=== PATIENT | female | born 1975 | race Caucasian/White ===

== ENCOUNTER → 2016-06-22 | Outpatient (CLI) | payer BC ==
--- NOTE | 2016-06-22 11:00 | ST Modified Barium Swallow ---
Recommendation - Recommendations Recommendations: 1) Recommend continued current diet of regular solids and thin liquids. 2) Recommend consider GI referral for pt reports of "sticking in chest " when eating. 3) Recommend consider pulmonology referral due to pt reports of "difficulty breathing" with walking and going up steps and sensation of "throat closing". 4) Follow-up with referring physician or primary care provider. SUMMARY: No penetration or aspiration observed during the study. Trace residuals of solids observed on base of tongue which cleared with second swallow. Residuals observed to be WFL and cleared with pt initiation of second swallow. Medical Diagnoses - Medical Diagnoses Medical Diagnosis Description & ICD-10 Code(s): dysphagia r13.10 Other Medical Diagnoses/Co-Morbidities: "borderline diabetes" - ICD-10 Tx Diagnosis Coding (1) Dysphagia, unspecified ICD-10 Code(s): R13.10 - DYSPHAGIA, UNSPECIFIED ST Modified Barium Swallow - General Date: 06/22/16 Referring Physician: Dr Shah Risks/Precautions: None Date of Onset: 06/23/15 Reason for Referral: dysphagia - History History obtained from: Patient -: Medical - Pt initially reports no deficits with swallowing and stated thought she was at a study for "breathing". Pt reported feels her "throat is closing", is in "constant throat pain", and has had "vocal changes." ST educated pt on MD's reason for referral and purpose of study. Pt then indicated coughing and choking on both solids and liquids. Pt denies history of PNA or bronchitis. Pt endorses globus sensation in mid-upper chest. Pt referred from ENT, documentation from visit states findings were normal. Pt states symptoms became worse after being "sick for a week" with a "sinus infection and ear infection". Pt reports was placed on antibiotic and was unable to eat due to "food tasted bad." PMHx: pt reports borderline diabetes. Pt states father had a history of "throat closing". Stated "my father's throat was closed for 3-4 months and no one knew why", "then it just went away". Medications: per pt, pt unable to reccall medication names; thyroid pills, sinus pill, nasal spray, vitamin, inflammatory medicine for feet. Allergies: dust - Functional Status Prior Functional Status: INDEPENDENT: ADL, communication, feeding Current Functional Limitations: ADL, communication, feeding - Subjective Patient/caregiver goal(s): safe swallow Cognitive-Linguistic Function: Functional Speech Intelligibility: WNL Current Nutritional Means: PO Current PO diet: Regular Current symptoms: c/o Globus sensation, other - sensation of "throat closing." Pain: 4/5 - throat pain - Objective Assessment: Upright, Left Lateral - Food Trials Used Food trials used: Thin liquids, Pureed, Regular The patient: Was Able to Self Feed, via cup, via spoon, via straw - Oral-Motor Skills Dentition: Full Velo-pharyngeal function: Active gag Laryngeal Function: Volitional Cough, Volitional Swallow - Assessment Oral prep: Normal Labial closure: Adequate Leakage: None Mastication: Adequate Lingual Movement: Normal Oral stage: Normal for this Procedure Oral Stage: Informal oral [facility] exam completed due to pt's reports of pain. No oral abnormalities or discoloration observed. Tonsils present- difficult to fully assess due to pt unable to relax tongue down, tongue depressor used-pt demonstrated overactive gag reflex. Upper portion of tonsils visible and did not appear inflamed or discolored-however limited view. - Pharyngeal Stage Initiation of Pharyngeal Stage Reflex: Normal Decreased laryngeal elevation: No Reduced Velopharyngeal Closure: no Reduced pressure generation: Yes - mild reduced tongue-based retraction: No Pre-swallow pooling in valleculae: None Pre-Swallow pooling in pyriforms: None Reduced Thyro-Hyoid approximation: No Reduced epiglottic excursion: No Reduced pharyngeal peristalsis/contraction: No Post-swallow residulas vallecular: None Post-Swallow residuals in pyriforms: None - Fall Risk Assessment Medications/Conditions that increase fall risks include: Antidepressants, sedatives, anti-arrhythmic, diuretic, benzodiazipenes, neuroleptics. BP regulation problems, cardiac problems, balance or gait deficits, neurological problems. Is patient considered at risk for falls: no Fall Risk Actions Taken: No action needed - Behavioral Observations During evaluation process patient: was pleasant, was cooperative, able to answer questions, provided medical history - Treatment / Educational Needs: Treatment/Education Needs: Treatment consisted of patient education on the role of the Speech Pathologist. Patient's plan of care and golas were communicated as well as scheduling and attendance policies. Recommendations for initial home program were shared. Patient demonstrated understanding and verbalized agreement. - Impression/Summary Laryngeal Penetration: No Tracheal Aspiration: no Patient presents with: Normal swallow at eval - safe and effective swallow observed during study Risk of Aspiration: Minimal Risk of nutritional compromise: None - no weightloss reported - Recommendations NPO: no Solid diet recommendations: Regular Liquid Diet Modification: Thin Strict aspiration precautions: No Pt/Family education and followup with MD: Yes Dysphagia therapy with [facility] FEEDER: no Recommended techniques: Fully Upright During Meal Supervision: Independent Information, Precautions and Recommendations: Patient (Verbal) - Time Total Time: 25 - Plan of Care Strategies to optimize patient understanding include:: ongoing assessment of educational needs, implementation of educational strategies, and re-education. - - -: Thank you for the opportunity to work with this patient and his/her family. Should you have any questions about this patient's plan or progress, I can be reached at [phone]. Charge G Code? - - -: No
== END ==
LOC: RAD 07:38
PROVIDERS: ATTEND Otolaryngology
DX: R13.10 Dysphagia, unspecified (principal)
CPT/HCPCS: 74230

== ENCOUNTER 2016-08-25 12:09 | Day surgery (SDC) | payer BC ==
[2016-08-18 10:34] LABS: ABSOLUTE EOSINOPHILS # (AUTO) 0.1 10^3/uL (0.0-0.6); ABSOLUTE LYMPHOCYTES (AUTO) 2.4 10^3/uL (0.5-4.7); ABSOLUTE MONOCYTES (AUTO) 0.3 10^3/uL (0.1-1.4); ABSOLUTE NEUT (AUTO) 4.4 10^3/uL (1.7-8.2); BASOPHILS % (AUTO) 0.5 % (0-2); EOSINOPHILS % (AUTO) 1.2 % (0-6); HEMATOCRIT 36.9 % (36.0-47.0); HEMOGLOBIN 12.2 g/dL (12.0-15.5); HGB HCT DIFFERENCE -0.3; LYMPHOCYTES % (AUTO) 32.9 % (13-45); MEAN CORPUSCULAR VOLUME 85 fl (80-97); MONOCYTES % (AUTO) 4.7 % (3-13); RED BLOOD COUNT 4.36 10^6/uL (3.72-5.28); RED CELL DISTRIBUTION WIDTH 14.4 % (11.5-14.0); SEGMENTED NEUTROPHILS % (AUTO) 60.7 % (42-78); WHITE BLOOD COUNT 7.2 10^3/uL (4.0-10.5)
[2016-08-18 10:51] LABS: AMORPHOUS SEDIMENT,URINE TRACE /HPF; APPEARANCE,URINE SLIGHTLY-CLOUDY; BILIRUBIN,URINE NEGATIVE (NEGATIVE); GLUCOSE, URINE NEGATIVE (NEGATIVE); KETONES,URINE NEGATIVE (NEGATIVE); LEUKOCYTE ESTERASE,URINE NEGATIVE (NEGATIVE); NITRITE,URINE NEGATIVE (NEGATIVE); PROTEIN,URINE NEGATIVE (NEGATIVE); URINE SPECIFIC GRAVITY 1.026; UROBILINOGEN,URINE NEGATIVE mg/dL (<2.0)
[2016-08-18 10:58] LABS: ANION GAP 12 (5-19); BLOOD UREA NITROGEN 15 mg/dL (7-20); CALCIUM 9.2 mg/dL (8.4-10.2); CARBON DIOXIDE 25 mmol/L (22-30); CHLORIDE 105 mmol/L (98-107); CREATININE RESULT 0.51 mg/dL (0.52-1.25); GLUCOSE 116 mg/dL (75-110); POTASSIUM 4.3 mmol/L (3.6-5.0); SODIUM 141.6 mmol/L (137-145)
--- NOTE | 2016-08-18 13:16 | RADIOLOGY REPORT (SQ) ---
EXAM DESCRIPTION: CHEST PA/LATERAL COMPLETED DATE/TIME: 08/18/2016 11:18 am REASON FOR STUDY: PRE-OP COMPARISON: None. EXAM PARAMETERS: NUMBER OF VIEWS: two views TECHNIQUE: Digital Frontal and Lateral radiographic views of the chest acquired. RADIATION DOSE: NA LIMITATIONS: none FINDINGS: LUNGS AND PLEURA: No opacities, masses or pneumothorax. No pleural effusion. MEDIASTINUM AND HILAR STRUCTURES: No masses or contour abnormalities. HEART AND VASCULAR STRUCTURES: Heart normal size. No evidence for failure. BONES: No acute findings. HARDWARE: None in the chest. OTHER: No other significant finding. IMPRESSION: NO SIGNIFICANT RADIOGRAPHIC FINDING IN THE CHEST. TECHNICAL DOCUMENTATION: JOB ID: [id number] [employer]- All Rights Reserved
--- NOTE | 2016-08-18 20:28 | EKG REPORT ---
SEVERITY:- BORDERLINE ECG - SINUS ARRHYTHMIA, RATE 49-70 BORDERLINE T ABNORMALITIES, INFERIOR LEADS : Confirmed by: Earl Vaughan MD 18-Aug-2016 20:28:05
[~2016-08-25 12:09] MED LIST: ACETAMINOPHEN 100 ML IV ONE; BUPIVACAINE HCL 0.5 % INJ/PF 30 ML SDV ONE; CEFAZOLIN 2 GM/D5W RTU 2 GM/50 ML RTUPB IV PRN; FENTANYL CITRATE INJ/PF 100 MCG/2 ML AMPUL ONE; LACTATED RINGERS 1000 ML IV PRN; LIDOCAINE 0.5% INJ-PF (5 MG/ML) 50 ML SDV SUBCUT PRN; LIDOCAINE 1% INJ-PF (10 MG/ML) 30 ML SDV ONE; MIDAZOLAM 2 MG/2 ML INJ ONE; PROPOFOL INJ 200 MG/20 ML VIAL IV ONE
[2016-08-25] MEDS ORDERED: DEXMEDETOMIDINE INJ 80 MCG/20 ML VIAL IV ONE (12:46)
[2016-08-25] MEDS ORDERED: MORPHINE SULFATE 10 MG/ML INJ IV PRN ×2 (13:42→14:27)
[2016-08-25] MEDS ORDERED: MEPERIDINE HCL/PF INJ 25 MG/1 ML DISP.SYRIN IV PRN (13:42)
[2016-08-25] MEDS ORDERED: OXYCODONE-ACETAMINOPHEN 5-325 MG TABLET PO PRN ×3 (13:42→14:27)
[2016-08-25] MEDS ORDERED: PROMETHAZINE HCL INJ 25 MG/1 ML VIAL IV PRN ×2 (13:42)
[2016-08-25] MEDS ORDERED: FENTANYL CITRATE INJ/PF 100 MCG/2 ML AMPUL IV PRN ×3 (13:42)
[2016-08-25] MEDS ORDERED: ONDANSETRON HCL INJ/PF 4 MG/2 ML SDV IV PRN ×2 (13:42→14:27)
[2016-08-25] MEDS ORDERED: DIPHENHYDRAMINE HCL 50 MG/ML VIAL IV PRN (13:42)
--- NOTE | 2016-08-25 14:26 | Operative Report ---
Operative Report DATE OF SURGERY: 08/25/16 PREOPERATIVE DIAGNOSIS: Right Carpal/Cubital Tunnel Syndrome POSTOPERATIVE DIAGNOSIS: Same OPERATION: Open In Situ Cubital Tunnel Release. Endoscopic Carpal Tunnel Release SURGEON: SARA ANTUNEZ ANESTHESIA: GA COMPLICATIONS: None ESTIMATED BLOOD LOSS: Minimal PROCEDURE: Indication for above procedure: 40-year-old female with long-standing history of numbness and tingling throughout her right upper extremity. Patient had signs and symptoms of cubital and carpal tunnel syndrome. At that point we discussed treatment options including operative versus nonoperative intervention. After discussing risks and benefits of operative treatment patient verbalized understanding consented for the surgical procedure. Procedure In Detail: Patient was seen and evaluated in the preoperative holding area. The RIGHT upper extremity was initialized and marked. Patient received 2g of Ancef IV for bacterial prophylaxis. Patient was taken back to the operative room where transferred to the operative table and placed under general anesthesia. Once they were adequately anesthetized and a nonsterile tourniquet was placed on the upper extremity. A surgical team debriefing was performed ensuring all instrumentation was available, the surgical procedure was discussed with possible concerns reviewed. The upper extremity was prepped with chlorhexidine and alcohol and draped in a sterile fashion. A timeout was done identifying correct patient, procedure and extremity everyone in attendance agree with this and verbalized no concerns. The extremity was exsanguinated the tourniquet was inflated to 250 mmHg. A longitudinal skin incision was made centered over the cubital tunnel. Careful dissection was done through the overlying soft tissues any peripheral vasculature was carefully coagulated with bipolar cautery. The branches of the medial antebrachial cutaneous nerve were identified and protected throughout the entirety of the case. Once within the confines of the cubital tunnel the ulnar nerve was identified at the proximal aspect of the wound. At this level I carefully released a medial portion of the triceps and the medial intermuscular septum freeing the ulnar nerve proximally of any overlying soft tissue compression. I then continued to track the ulnar nerve distally releasing Pedraza's fascia. At the level of the FCU aponeurosis between the 2 heads of the FCU muscle. The fascia was released once again relieving any external compression from the ulnar nerve distally to the level of the first motor branch. I then freed up the nerve posteriorly ensuring there is no remaining soft tissue bands of tissue causing compression. During dissection of the nerve careful attention was directed at avoiding disruption of the ulnar nerve blood supply. Elbow range of motion was then done from full flexion to full extension with full flexion there was no evidence of anterior subluxation of the ulnar nerve from the groove. And thus I determine patient would not require anterior subcutaneous ulnar nerve transposition. Really irrigated with normal saline. A peripheral vasculature was coagulated with bipolar cautery. Subcutaneous tissues were closed interrupted 3-0 Monocryl suture. Skin was closed with running subcuticular 3-0 Monocryl which was later reinforced with Dermabond and Steri-Strips. A transverse skin incision was made just proximal to the wrist flexion crease ulnar to the palmaris longus. Blunt dissection was performed down to the palmaris longus tendon which was retracted radially. Deep to the palmaris longus tendon was the volar carpal ligament this was incised identifying the median nerve deep. With the use of a [place] elevator any soft tissue was freed from the undersurface of the distal transverse carpal ligament. The hook of hamate was identified ulnarly. The ConMed cannulas were then introduced beginning with #1 progressing to a #3 gently dilating the carpal canal. I then introduced the scope within the cannula and identified transverse carpal ligament ensuring the median nerve was not visualized within the cannula. I triangulated distally with a 25-gauge needle identifying the distal aspect of the transverse carpal ligament, to ensure protection of the superficial palmar arch. The arthroscopic knife was used to incise the transverse carpal ligament under direct visualization with the arthroscopic camera. Any excess transverse fibers that remained after the first past were carefully released with a repeat pass. The median nerve was then directly visualized radially without disruption. Once this was completed I placed the #3 dilator and assured I got complete release of the transverse carpal ligament without residual compression. The median nerve was directly visualized and free of any overlying compression. I then turned my attention to release of the volar antebrachial fascia proximally. Once again a [place] was used to open the wound and I proceeded with cannula #1 to #3. The arthroscope was introduced into the cannula and under direct visualization the volar antebrachial fascia was released. Once this was complete I copiusly irrigated the wound with normal saline. The skin incision was closed with 4-0 Monocryl subcutaneous and a running subcuticular 4-0 Monocryl. This was reinforced with Dermabond and Steri -Strips. Sterile, 4 x 4's and a Vamshi bandage was placed loosely. Sponge counts , instrument counts and needle counts were correct. The was no intraoperative complications patient tolerated the procedure well and was stable to PACU. Postoperative plan: Patient will follow-up in the office as scheduled which point we will proceed with wound check. She may begin gentle range of motion exercises but avoid any heavy lifting at her first postoperative appointment.
--- NOTE | 2016-08-25 14:30 | PDOC DISCHARGE SUMMARY ---
Discharge Summary (SDC) - Discharge Final Diagnosis: Right carpal tunnel syndrome, cubital tunnel syndrome Date of Surgery: 08/25/16 Discharge Date: 08/25/16 Condition: Good Treatment or Instructions: Schedule Follow Up w/ Dr. Shankar Paris @ [facility] for Surgery to be seen in 10-14 days or as scheduled [place]: [place]: [place]: May remove wrist dressing on postop day #3, keep incision covered and dry. Continue elbow dressing until follow-up appointment. Ice and elevate May begin finger range of motion attempting to make full fist. Stool softener of choice when on pain medication. Prescriptions: Oxycodone HCl/Acetaminophen [Percocet 5-325 mg Tablet] 1 - 2 tab PO ASDIR PRN # 40 tablet PRN Reason: Discharge Diet: As Tolerated Respiratory Treatments at Home: Deep Breathing/Coughing Report the Following to Your Physician Immediately: Fever over 101 Degrees, Unusual Bleeding, Redness, Swelling, Warmth, Increased Soreness, Numbness, Tingling Sensation
[2016-08-25] MEDS ORDERED: METOCLOPRAMIDE HCL INJ/PF 10 MG/2 ML SDV ONE (15:27)
[2016-08-25] MEDS ORDERED: ONDANSETRON HCL INJ/PF 4 MG/2 ML SDV ONE (15:27)
[2016-08-25] MEDS ORDERED: LIDOCAINE 2% INJ-PF (20 MG/ML) 10 ML AMPUL ONE (15:27)
[2016-08-25] MEDS ORDERED: SUCCINYLCHOLINE CHLORIDE INJ 200 MG/10 ML VIAL ONE (15:27)
[2016-08-25] MEDS ORDERED: DEXAMETHASONE SOD PHOSPHATE INJ 4 MG/1 ML VIAL ONE (15:27)
[2016-08-25 16:54] VITALS: BP 125/86
== END 2016-08-25 16:42 | disposition home or self-care (01) ==
LOC: OROUT 12:09
PROVIDERS: ATTEND Orthopaedic Surgery
PROC: 01N54ZZ Release Median Nerve, Percutaneous Endoscopic Approach (ICD-10-PCS; principal; 2016-08-25 13:00)
PROC: 01N40ZZ Release Ulnar Nerve, Open Approach (ICD-10-PCS; 2016-08-25 13:00)
DX: G56.21 Lesion of ulnar nerve, right upper limb (principal); G56.01 Carpal tunnel syndrome, right upper limb; E07.9 Disorder of thyroid, unspecified; M47.9 Spondylosis, unspecified; E11.9 Type 2 diabetes mellitus without complications; E66.9 Obesity, unspecified; Z79.84 Long term (current) use of oral hypoglycemic drugs; Z79.891 Long term (current) use of opiate analgesic; Z68.42 Body mass index [BMI] 45.0-49.9, adult; Z79.899 Other long term (current) drug therapy
CPT/HCPCS: 93005; 36415; 82962; 85025; 81025; 80048; 81001; 83036; 71020; 93010; 29848; 64718; J2250; J1100; J3010; J3490 ×3; J2765; J0330; J2405; J2704; J0690; J0131; 1810

== ENCOUNTER 2017-02-06 20:24 | Emergency (ER) | payer BC ==
[2017-02-06 20:36] VITALS: BP 117/75
--- NOTE | 2017-02-06 21:59 | ER Document Report ---
ED Suture/Wound Recheck - General Chief Complaint: Burn Recheck Stated Complaint: FOOT INJURY Time Seen by Provider: 02/06/17 21:50 Notes: Patient is a 41-year-old female, past medical history diabetes, presents after 2 weeks with a open right second toe wound that occurred after she dropped boiling sugar on it. She is trying Neosporin cream to the area, but the open wound is still present and she is noticing a small amount of redness around the area. Patient has not seen a doctor for this. Denies fevers. TRAVEL OUTSIDE OF THE [place] IN LAST 30 DAYS: No - Related Data Allergies/Adverse Reactions: No Known Allergies Allergy (Verified 08/18/16 10:57) Past Medical History - General Information source: Patient - Social History Smoking Status: Unknown if Ever Smoked Family History: Reviewed & Not Pertinent Patient has suicidal ideation: No Patient has homicidal ideation: No - Past Medical History Cardiac Medical History: Reports: Hx Hypertension - gestational Denies: Hx Coronary Artery Disease, Hx Heart Attack Pulmonary Medical History: Denies: Hx Asthma, Hx Bronchitis, Hx COPD, Hx Pneumonia Neurological Medical History: Denies: Hx Cerebrovascular Accident, Hx Seizures Renal/ Medical History: Denies: Hx Peritoneal Dialysis Musculoskeltal Medical History: Reports Hx Arthritis Past Surgical History: Reports: Hx Section - x2, Hx Cholecystectomy, Hx Tubal LigationComment Only: Hx Tonsillectomy - Adenoids - Immunizations Immunizations up to date: No Hx Diphtheria, Pertussis, Tetanus Vaccination: Yes Review of Systems - Review of Systems Notes: REVIEW OF SYSTEMS: CONSTITUTIONAL: -fevers, -chills EENT: -eye pain, -difficulty swallowing, -nasal congestion CARDIOVASCULAR:-chest pain, -syncope. RESPIRATORY: -cough, -SOB GASTROINTESTINAL: -abdominal pain, - nausea, -vomiting, -diarrhea GENITOURINARY: -dysuria, -hematuria MUSCULOSKELETAL: -back pain, -neck pain SKIN: +open wound on right 2nd toe HEMATOLOGIC: -easy bruising or bleeding. LYMPHATIC: -swollen, enlarged glands. NEUROLOGICAL: -altered mental status or loss of consciousness, -headache, - neurologic symptoms PSYCHIATRIC: -anxiety, -depression. ALL OTHER SYSTEMS REVIEWED AND NEGATIVE. Physical Exam - Vital signs Vitals: Temp Pulse Resp BP Pulse Ox 98.5 F 73 18 117/75 97 02/06/17 20:32 02/06/17 20:32 11/14/17 20:32 02/06/17 20:32 02/06/17 20:32 - Notes Notes: PHYSICAL EXAMINATION: GENERAL: Well-appearing, well-nourished and in no acute distress. HEAD: Atraumatic, normocephalic. EYES: conjunctiva are normal. ENT: nares patent, oropharynx clear without exudates. Moist mucous membranes. NECK: Normal range of motion, supple without lymphadenopathy EXTREMITIES: 2 cm partial thickness burn over dorsal surface of right 2nd toe with small amount of mild surrounding erythema. Normal range of motion, no pitting or edema. No cyanosis. NEUROLOGICAL: Cranial nerves grossly intact. Normal speech, normal gait. Normal sensory and motor exams. PSYCH: Normal mood, normal affect. Course - Re-evaluation Re-evalutation: Patient presents with 2 weeks of a nonhealing wound on the dorsal surface of her right second toe. She has diabetes. Patient has been applying Neosporin cream to the area, but feels that there is a small amount of redness surrounding the wound. Will begin Cipro to help with pseudomonal coverage and have patient follow-up with the wound care center. - Vital Signs Vital signs: Temp Pulse Resp BP Pulse Ox 98.5 F 73 18 117/75 97 02/06/17 20:32 02/06/17 20:32 02/06/17 20:32 02/06/17 20:32 02/06/17 20:32 Discharge - Discharge Clinical Impression: Burn of foot Qualifiers: Encounter type: initial encounter Laterality: right Burn degree: partial thickness (2nd degree) Qualified Code(s): T25.221A - Burn of second degree of right foot, initial encounter Condition: Stable Disposition: HOME, SELF-CARE Additional Instructions: Take the antibiotics as prescribed and follow-up with the W[facility] Care [facility]. [place] The seriousness of a burn is not always obvious at first. Delayed tissue damage and secondary infection may occur despite proper treatment. Proper care is very important. A burn that is third-degree may need skin grafting. Most chandler, however, are simply protected with dressings until healed. Keep the burn clean. If the dressing gets wet, remove it and blot the wound dry, then apply a fresh dressing. Dressings should be changed at least once daily. Soaks to remove crusting are usually started in about two days. [place] in certain areas require stretching to prevent disabling tightness. Your doctor will advise you about this. For pain control, you may frequently apply a hand towel that has been dipped in water with ice cubes. Do not apply ice directly to the burned areas. If any signs of infection occur (swelling, redness, increasing tenderness, red streaks, tender lumps in the armpit or groin above the burn, or fever), contact the doctor immediately. Prescriptions: Ciprofloxacin HCl [Cipro 500 mg Tablet] 500 mg PO BID #14 tablet Referrals: YAZMIN MARTIN DO [Primary Care Provider] - Follow up as needed WOUND CARE [Outside] - Follow up as needed
== END 2017-02-06 22:01 | disposition home or self-care (01) ==
LOC: ER 20:24
DX: T25.221A Burn of second degree of right foot, initial encounter (principal); E11.9 Type 2 diabetes mellitus without complications; X12.XXXA Contact with other hot fluids, initial encounter
CPT/HCPCS: 99282

== ENCOUNTER → 2017-06-18 | Outpatient (CLI) | payer BC ==
--- NOTE | 2017-06-18 15:22 | RADIOLOGY REPORT (SQ) ---
EXAM DESCRIPTION: PARANASAL SINUSES COMPLETED DATE/TIME: 06/18/2017 2:26 pm REASON FOR STUDY: CHRONIC RHINITIS J31.0 CHRONIC RHINITIS COMPARISON: None. NUMBER OF VIEWS: Three views. TECHNIQUE: Images of the paranasal sinuses acquired. LIMITATIONS: None. FINDINGS: ORBITS: No fracture. No foreign body. SINUSES: No mucosal thickening. No air fluid levels. FACIAL BONES: No fracture. OTHER: No other significant finding. IMPRESSION: NO FOREIGN BODY OR FRACTURE. NO PLAIN RADIOGRAPHIC EVIDENCE FOR SINUS DISEASE. TECHNICAL DOCUMENTATION: JOB ID: [id number] [employer]- All Rights Reserved Reading location - IP/workstation name: [email or web address]
== END ==
LOC: OD 14:02
PROVIDERS: ATTEND Allergy & Immunology
DX: J31.0 Chronic rhinitis (principal)
CPT/HCPCS: 70220

== ENCOUNTER 2018-08-24 13:03 | Emergency (ER) | payer BC ==
--- NOTE | 2018-08-24 13:53 | ER Document Report ---
HPI - HPI Patient complains to provider of: L foot pain, sore throat, ear pain Time Seen by Provider: 08/24/18 13:37 Pain Level: 4 Context: 42-year-old female with hypothyroidism and [id number] diabetes mellitus presents to the emergency department with left foot pain, earache, sore throat. She states that she was at work on and she stepped onto the floor and immediately had pain on the top of her left foot. She is able to bear some weight on it but cannot bear full weight on it. She states that there was no trauma. She did not roll her foot, she states that the pain is on the top of her foot and all over. She denies any redness but complains of swelling. She states that she has had a sore throat and earache since this morning. She denies dysphagia. She states the pain is mild. She denies fevers, chills, nausea, vomiting, abdominal pain, urinary symptoms. She denies headache, neck stiffness. No other complaints - CONSTITUTIONAL Constitutional: REPORTS: Chills. DENIES: Fever - EENT EENT: REPORTS: Sore Throat - REPRODUCTIVE Reproductive: DENIES: : - MUSCULOSKELETAL Musculoskeletal: REPORTS: Extremity pain - left foot Past Medical History - Social History Smoking Status: Never Smoker Family History: Reviewed & Not Pertinent Patient has suicidal ideation: No Patient has homicidal ideation: No - Past Medical History Cardiac Medical History: Reports: Hx Hypertension - gestational Denies: Hx Coronary Artery Disease, Hx Heart Attack Pulmonary Medical History: Denies: Hx Asthma, Hx Bronchitis, Hx COPD, Hx Pneumonia Neurological Medical History: Denies: Hx Cerebrovascular Accident, Hx Seizures Endocrine Medical History: Reports: Hx Diabetes Mellitus Type 2 Renal/ Medical History: Denies: Hx Peritoneal Dialysis Musculoskeletal Medical History: Reports Hx Arthritis Past Surgical History: Reports: Hx Section - x2, Hx Cholecystectomy, Hx Tubal LigationComment Only: Hx Tonsillectomy - Adenoids - Immunizations Immunizations up to date: No Hx Diphtheria, Pertussis, Tetanus Vaccination: Yes Vertical Provider Document - CONSTITUTIONAL Notes: PHYSICAL EXAMINATION: Reviewed vital signs and charting by RN GENERAL: Alert, interacts well. No acute distress. HEAD: Normocephalic, atraumatic. EYES: Pupils equal, round, and reactive to light. Extraocular movements intact. ENT: Oral mucosa moist, tongue midline. NECK: Full range of motion. Supple. Trachea midline. LUNGS: Clear to auscultation bilaterally, no wheezes, rales, or rhonchi. No respiratory distress. HEART: Regular rate and rhythm. No murmur ABDOMEN: soft, non-tender. No distention. Bowel sounds present EXTREMITIES: Moves all 4 extremities spontaneously. No edema, No cyanosis. Mild erythema on the dorsal aspect of her left foot and slightly warm. Tenderness to palpation that is generalized to the dorsal aspect of her left foot. She can stand on her foot but cannot bear full weight. PSYCH: Normal affect, normal mood. SKIN: Warm, dry, normal turgor. No rashes or lesions noted. - INFECTION CONTROL TRAVEL OUTSIDE OF THE [place] IN LAST 30 DAYS: No Course - Re-evaluation Re-evalutation: 08/24/18 13:50 Overall well-appearing. Patient with no history of gout but does not present with erythematous, warm left MTP. No trauma but I will still x-ray the foot to ensure there is no obvious abnormality. Patient does have history of allergies and sinus problems and there is no evidence of streptococcal pharyngitis, retropharyngeal abscess, otitis media, or any other concerning ENT symptoms. 08/24/18 14:28 X-ray negative for any fracture dislocation but noted some soft tissue swelling. Patient is afebrile and I have low concern for cellulitis or any other concerning symptoms. At this time I instructed patient to follow-up with her primary care doctor in the next 3 to 5 days. Stable for discharge - Vital Signs Vital signs: Temp Pulse Resp BP Pulse Ox 98.2 F 71 13 125/74 97 08/24/18 13:18 08/24/18 13:18 08/24/18 13:18 08/24/18 13:18 08/24/18 13:18 Discharge - Discharge Clinical Impression: Left foot pain, Sore throat, Earache Condition: Good Disposition: HOME, SELF-CARE Additional Instructions: You are seen in the emergency department this afternoon for left foot pain, sore throat, and earache. X-ray did not show any obvious fracture or dislocation in your foot and it is most likely a soft tissue issue. It is unclear why you are having this pain but please follow-up with Dr. Boone at your earliest convenience. If your blood sugars are not controlled to this could be a symptom of diabetic neuropathy. I have given you a boot that he can wear until you follow-up with Dr. Boone. If your foot starts to turn blue or black, you lose feeling in it, your leg becomes paralyzed, please return to the emergency department for reevaluation. Your throat looks normal and your ears look normal. It could most likely be from postnasal drip as I do not believe you have something like strep throat or middle ear infection. If you get worsening pain in your throat, unable to handle your secretions i.e. drooling and cannot swallow, or you have worsening symptoms please return to the emergency department. Forms: Return to Work Referrals: YAZMIN BOONE, [Primary Care Provider] - Follow up in 3-5 days
--- NOTE | 2018-08-24 14:19 | RADIOLOGY REPORT (SQ) ---
EXAM DESCRIPTION: FOOT LEFT COMPLETE COMPLETED DATE/TIME: 08/24/2018 2:00 pm REASON FOR STUDY: unable to bear weight, acute pain COMPARISON: None. NUMBER OF VIEWS: Three views. TECHNIQUE: AP, lateral and oblique radiographic images acquired of the left foot. LIMITATIONS: None. FINDINGS: MINERALIZATION: Diffuse osteopenia. BONES: No acute fracture or dislocation. No worrisome bone lesions. Small Achilles and moderate-siz ed plantar calcaneal enthesophyte. No erosions. JOINTS: No sizable effusions. SOFT TISSUES: Nonspecific soft tissue swelling forefoot. No radiopaque foreign body or soft tissue g as. OTHER: No other significant finding. IMPRESSION: 1. Nonspecific soft tissue swelling of the forefoot. No acute fracture dislocation. 2. Plantar calcaneal and Achilles enthesophytes. TECHNICAL DOCUMENTATION: JOB ID: [id number] [employer]- All Rights Reserved Reading location - IP/workstation name: [email or web address]
[2018-08-24 15:02] VITALS: BP 127/81
== END 2018-08-24 15:02 | disposition home or self-care (01) ==
LOC: ER 13:03
DX: J02.9 Acute pharyngitis, unspecified (principal); M79.672 Pain in left foot; H92.09 Otalgia, unspecified ear; E11.9 Type 2 diabetes mellitus without complications; Z90.49 Acquired absence of other specified parts of digestive tract; Z98.51 Tubal ligation status
CPT/HCPCS: 99283

== ENCOUNTER 2018-08-27 13:47 | Emergency (ER) | payer BC ==
--- NOTE | 2018-08-27 16:41 | ER Document Report ---
HPI - HPI Time Seen by Provider: 08/27/18 15:58 Pain Level: 4 Notes: This is a 42-year-old female presenting to the emergency department for the second time in 3 days with complaint of pain and redness to the dorsal surface of her left foot. On patient's last ED visit she had a negative foot x-ray. Patient denies any direct trauma to the area. States that the pain has been present for approximately 4 days. She describes it as worsening when she is on her feet. She does have some mild edema. Denies a history of any DVTs. Denies any leg pain or calf pain. Denies any recent insect bite or any recent illness. - REPRODUCTIVE Reproductive: DENIES: : Past Medical History - General Information source: Patient - Social History Smoking Status: Never Smoker Family History: Reviewed & Not Pertinent - Past Medical History Cardiac Medical History: Reports: Hx Hypertension - gestational Denies: Hx Coronary Artery Disease, Hx Heart Attack Pulmonary Medical History: Denies: Hx Asthma, Hx Bronchitis, Hx COPD, Hx Pneumonia Neurological Medical History: Denies: Hx Cerebrovascular Accident, Hx Seizures Endocrine Medical History: Reports: Hx Diabetes Mellitus Type 2 Renal/ Medical History: Denies: Hx Peritoneal Dialysis Musculoskeletal Medical History: Reports Hx Arthritis Past Surgical History: Reports: Hx Section - x2, Hx Cholecystectomy, Hx Tubal LigationComment Only: Hx Tonsillectomy - Adenoids - Immunizations Immunizations up to date: No Hx Diphtheria, Pertussis, Tetanus Vaccination: Yes Vertical Provider Document - CONSTITUTIONAL Notes: PHYSICAL EXAMINATION: GENERAL: Well-appearing, well-nourished and in no acute distress. HEAD: Atraumatic, normocephalic. EYES: Pupils equal round extraocular movements intact, conjunctiva are normal. ENT: Nares patent NECK: Normal range of motion LUNGS: No respiratory distress Musculoskeletal: Normal range of motion NEUROLOGICAL: Normal speech, normal gait. PSYCH: Normal mood, normal affect. SKIN: Mild erythema and edema noted to the dorsal surface of left foot. Strong dorsalis pedis pulse noted. Normal cap refill. Normal motor and sensation distal to area of concern. - INFECTION CONTROL TRAVEL OUTSIDE OF THE [place] IN LAST 30 DAYS: No Course - Re-evaluation Re-evalutation: Patient does report that she has to wear a specific shoe for work that is not very comfortable and puts pressure on the top of her foot. I suspect this may be the cause of her pain. Patient does report she tried following up with her primary care and podiatry as recommended by previous provider who saw her 3 days ago. She states both of them were booked up. Will provide patient with a short course of pain medication pending follow-up. I do not suspect any life- threatening etiology nor does it appear to be consistent with cellulitis. I do not suspect a DVT as patient's pain is localized to a small area at the dorsal surface of the foot and patient does not have any risk factors for DVT. - Vital Signs Vital signs: Temp Pulse Resp BP Pulse Ox 98.3 F 85 16 139/82 H 100 08/27/18 14:02 08/27/18 14:02 08/27/18 14:02 08/27/18 14:02 08/27/18 14:02 Discharge - Discharge Clinical Impression: Foot pain Qualifiers: Laterality: left Qualified Code(s): M79.672 - Pain in left foot Condition: Stable Disposition: HOME, SELF-CARE Additional Instructions: Your x-ray taken on your last visit was negative. This means there is no fra cture or dislocation of the bones. I do not feel that there is anything life- threatening going on, I do not feel this is a blood clot. I do think that you should take the next couple of days off of work, elevate your foot and apply ice to the area for no more than 20 minutes at a time. Take the pain medication as prescribed. I would like you continuing all of your other medications. Please follow-up with primary care and podiatry as discussed. Prescriptions: Hydrocodone Bit/Acetaminophen [Hydrocodon-Acetaminophen 5-325] 1 each PO Q4H #12 tablet Forms: Return to Work Referrals: YAZMIN MARTIN DO [Primary Care Provider] - Follow up as needed
[2018-08-27 16:51] VITALS: BP 125/87
== END 2018-08-27 16:51 | disposition home or self-care (01) ==
LOC: ER 13:47
DX: M79.672 Pain in left foot (principal); Z90.49 Acquired absence of other specified parts of digestive tract; Z98.51 Tubal ligation status
CPT/HCPCS: 99283

== ENCOUNTER → 2019-12-30 | Outpatient (CLI) | payer BC ==
--- NOTE | 2019-12-30 17:31 | RADIOLOGY REPORT (SQ) ---
EXAM DESCRIPTION: CT ABD/PELVIS WITH IV ORAL IMAGES COMPLETED DATE/TIME: 12/30/2019 1:32 pm REASON FOR STUDY: K43.9 VENTRAL HERNIA WITHOUT OBSTRUCTION OR GANGRENE K43.9 VENTRAL HERNIA WITHOUT OBSTRUCTION OR GANGRENE COMPARISON: None. TECHNIQUE: CT scan of the abdomen and pelvis performed using helical scanning technique with dynamic intravenous contrast injection. No oral contrast. Images reviewed with lung, soft tissue, and bone windows. Reconstructed coronal and sagittal MPR images reviewed. Delayed images for evaluation of the urinary system also acquired. All images stored on PACS. All CT scanners at this facility use dose modulation, iterative reconstruction, and/or weight based d osing when appropriate to reduce radiation dose to as low as reasonably achievable (ALARA). [facility]: Dose Right [facility]: CareDose [facility]: Dose Right [facility]: Teradose 4D [facility]: Matchbook CONTRAST TYPE AND DOSE: contrast/concentration: Isovue 350.00 mmol/ml; Total Contrast Delivered: 100 .0 ml; Total Saline Delivered: 22.7 ml RENAL FUNCTION: Creatinine 0.4. RADIATION DOSE: CT Rad equipment meets quality standard of care and radiation dose reduction techniq ues were employed. CTDIvol: 29.3 - 30.0 mGy. DLP: 3332 mGy-cm.. LIMITATIONS: None. FINDINGS: LOWER CHEST: No significant findings. No nodules or infiltrates. LIVER: Normal size. No masses. No dilated ducts. SPLEEN: Normal size. No focal lesions. PANCREAS: No masses. No significant calcifications. No adjacent inflammation or peripancreatic fluid collections. Pancreatic duct not dilated. GALLBLADDER: Surgically absent. ADRENAL GLANDS: No significant masses or asymmetry. RIGHT KIDNEY AND URETER: No solid masses. No significant calcifications. No hydronephrosis or hyd roureter. LEFT KIDNEY AND URETER: No solid masses. No significant calcifications. No hydronephrosis or hydr oureter. AORTA AND VESSELS: No aneurysm. No dissection. Renal arteries, SMA, celiac without stenosis. RETROPERITONEUM: No retroperitoneal adenopathy, hemorrhage or masses. BOWEL AND PERITONEAL CAVITY: No masses or inflammatory changes. No free fluid or peritoneal masses. APPENDIX: Surgically absent. PELVIS: No mass. No free fluid. Normal bladder. ABDOMINAL WALL: No masses. Umbilical hernia containing fat. No involvement of bowel. BONES: No significant or acute findings. OTHER: No other significant finding. IMPRESSION: UMBILICAL HERNIA CONTAINING FAT. NO INVOLVEMENT OF BOWEL. NO OTHER SIGNIFICANT OR ACUT E FINDING IN THE ABDOMEN OR PELVIS ON CT SCAN WITH IV CONTRAST. TECHNICAL DOCUMENTATION: JOB ID: [id number] Quality ID # [id number]: Final reports with documentation of one or more dose reduction techniques (e.g., Au tomated exposure control, adjustment of the mA and/or kV according to patient size, use of iterative reconstruction technique) 2010 [employer]- All Rights Reserved Reading location - IP/workstation name: [email or web address]
== END ==
LOC: RAD 12:50
PROVIDERS: ATTEND Surgery
DX: K43.9 Ventral hernia without obstruction or gangrene (principal)
CPT/HCPCS: 74177; 82565